=== PATIENT | male | born 1950 | race American Indian/Alaskan Native ===

== ENCOUNTER 2017-09-22 13:55 | Emergency (ER) | payer MEDICARE | END 2017-09-22 14:25 | disposition left against medical advice (07) | LOC: ED 13:55 | DX: R05 Cough (principal); Z53.21 Procedure and treatment not carried out due to patient leaving prior to being seen by health care provider ==

== ENCOUNTER 2017-09-22 19:57 | Emergency (ER) | payer MEDICARE ==
[2017-09-22 21:56] VITALS: BP 147/73
--- NOTE | 2017-09-22 22:48 | XRay Report ---
FINAL REPORT EXAM: XR CHEST ROUTINE 2V HISTORY: productive cough x3 weeks TECHNIQUE: upright single view chest PRIORS: None. FINDINGS: Cardiac and mediastinal contours are unremarkable. No focal pulmonary infiltrate is identified. No pleural fluid collection seen. Pulmonary vasculature is unremarkable. IMPRESSION: Negative single-view chest
[2017-09-22] MEDS ORDERED: GUAIFENESIN DM SYRUP PO ONE (23:15)
[2017-09-22] MEDS ORDERED: ZITHROMAX PO ONE (23:16)
--- NOTE | 2017-09-22 23:19 | Emergency Department Report ---
- General Chief Complaint: Upper Respiratory Infection Stated Complaint: SEVERE COUGH Time Seen by Provider: 09/22/17 23:10 Source: patient Mode of arrival: Ambulatory Limitations: No Limitations - History of Present Illness Initial Comments: 67-year-old male past medical history hypertension presents with complaint of persistent cough. Patient denies fevers chills denies sore throat denies earache. Speaking in full sentences no audible wheezing or stridor. States the cough is slightly worse at night. Denies any orthopnea or paroxysmal nocturnal dyspnea. Denies any chest pain or palpitations or shortness of breath at rest. States he was taking some xyrx-ndq-rsyugez cough medicine with minimal relief of his cough. Patient awake alert and oriented 3. Denies any pleuritic chest pain or LE swelling/pain. MD Complaint: cough Onset/Timin -: week(s) Severity: moderate Consistency: constant Improves With: OTC cold medicine Associated Symptoms: cough Treatments Prior to Arrival: none - Related Data Previous Rx's Medication Instructions Recorded Last Taken Type Azithromycin [Zithromax] 250 mg PO DAILY #6 tablet 11/22/16 Unknown Rx Benzonatate [Tessalon Perles] 100 mg PO Q8HR #21 capsule 11/22/16 Unknown Rx Guaifenesin/Codeine Phosphate 10 ml PO TID #118 liquid 11/22/16 Unknown Rx [Guaifenesin-Codeine Liquid] Labetalol [Normodyne TAB] 100 mg PO DAILY #30 tablet 11/22/16 Unknown Rx ALBUTEROL Inhaler [ProAir HFA 2 puff IH QID PRN #1 inhalation 09/22/17 Unknown Rx Inhaler] Azithromycin [Zithromax Z-KYA] 250 mg PO QDAY #4 tablet 09/22/17 Unknown Rx Phenylephrine/Dm/Acetaminop/GG 10 ml PO Q6H PRN #1 liquid 09/22/17 Unknown Rx [Mucinex Ewgz-Uyj-Dwpuegufnl Lq] predniSONE [Deltasone] 20 mg PO QDAY #4 tablet 09/22/17 Unknown Rx Allergies Allergy/AdvReac Type Severity Reaction Status Date / Time No Known Allergies Allergy Unverified 11/22/16 13:45 ED Review of Systems ROS: Stated complaint: SEVERE COUGH Other details as noted in HPI Constitutional: denies: chills, fever Eyes: denies: eye pain, eye discharge, vision change ENT: denies: ear pain, throat pain Respiratory: cough (3 weeks of persistent cough). denies: shortness of breath, wheezing Cardiovascular: denies: chest pain, palpitations Endocrine: no symptoms reported Gastrointestinal: denies: abdominal pain, nausea, diarrhea Genitourinary: denies: urgency, dysuria Musculoskeletal: denies: back pain, joint swelling, arthralgia Skin: denies: rash, lesions Neurological: denies: headache, weakness, paresthesias Psychiatric: denies: anxiety, depression Hematological/Lymphatic: denies: easy bleeding, easy bruising ED Past Medical Hx - Past Medical History Previous Medical History?: Yes Hx Hypertension: Yes (NO MEDS) - Surgical History Past Surgical History?: No - Social History Smoking Status: Never Smoker - Medications Home Medications: Home Medications Medication Instructions Recorded Confirmed Last Taken Type Azithromycin [Zithromax] 250 mg PO DAILY #6 tablet 11/22/16 Unknown Rx Benzonatate [Tessalon Perles] 100 mg PO Q8HR #21 capsule 11/22/16 Unknown Rx Guaifenesin/Codeine Phosphate 10 ml PO TID #118 liquid 11/22/16 Unknown Rx [Guaifenesin-Codeine Liquid] Labetalol [Normodyne TAB] 100 mg PO DAILY #30 tablet 11/22/16 Unknown Rx ALBUTEROL Inhaler [ProAir HFA 2 puff IH QID PRN #1 inhalation 09/22/17 Unknown Rx Inhaler] Azithromycin [Zithromax Z-KYA] 250 mg PO QDAY #4 tablet 09/22/17 Unknown Rx Phenylephrine/Dm/Acetaminop/GG 10 ml PO Q6H PRN #1 liquid 09/22/17 Unknown Rx [Mucinex Emgx-Xzl-Vnflnksotz Lq] predniSONE [Deltasone] 20 mg PO QDAY #4 tablet 09/22/17 Unknown Rx ED Physical Exam - General Limitations: No Limitations General appearance: alert, in no apparent distress - Head Head exam: Present: atraumatic, normocephalic - Eye Eye exam: Present: normal appearance, PERRL, EOMI Pupils: Present: normal accommodation - ENT ENT exam: Present: normal exam, mucous membranes moist - Neck Neck exam: Present: normal inspection - Respiratory Respiratory exam: Present: normal lung sounds bilaterally. Absent: respiratory distress - Cardiovascular Cardiovascular Exam: Present: regular rate, normal rhythm. Absent: systolic murmur, diastolic murmur, rubs, gallop - GI/Abdominal GI/Abdominal exam: Present: soft, normal bowel sounds - Rectal Rectal exam: Present: deferred - Extremities Exam Extremities exam: Present: normal inspection - Back Exam Back exam: Present: normal inspection - Neurological Exam Neurological exam: Present: alert, oriented X3 - Psychiatric Psychiatric exam: Present: normal affect, normal mood - Skin Skin exam: Present: warm, dry, intact, normal color. Absent: rash ED Course Vital Signs 09/22/17 21:54 Temperature 98.5 F Pulse Rate 81 Respiratory 18 Rate Blood Pressure 147/73 O2 Sat by Pulse 100 Oximetry ED Medical Decision Making - Medical Decision Making A/P: Acute bronchitis, cough 1-xray unremarkable. as patient states he has had cough for approximately 3 weeks will cover empirically with azithromycin 2-Mucinex when necessary, short course prednisone, Tylenol when necessary 3-albuterol inhaler when necessary 4- follow up with primary care doctor Critical care attestation.: If time is entered above; I have spent that time in minutes in the direct care of this critically ill patient, excluding procedure time. ED Disposition Clinical Impression: Bronchitis Disposition: DC-01 TO HOME OR SELFCARE Is pt being admited?: No Does the pt Need Aspirin: No Condition: Stable Instructions: Acute Bronchitis (ED) Prescriptions: ALBUTEROL Inhaler [ProAir HFA Inhaler] 2 puff IH QID PRN #1 inhalation PRN Reason: Cough Azithromycin [Zithromax Z-KYA] 250 mg PO QDAY #4 tablet Phenylephrine/Dm/Acetaminop/GG [Mucinex Zdht-Wyh-Suegbtgppq Lq] 10 ml PO Q6H PRN #1 liquid PRN Reason: Cough predniSONE [Deltasone] 20 mg PO QDAY #4 tablet Referrals: LEEROY GREER MD [Staff Physician] - 3-5 Days OBI MONTENEGRO MD [Staff Physician] - 3-5 Days Time of Disposition: 23:17
[2017-09-22] MEDS ORDERED: DUONEB *Not for PRN Use IH ONE (23:22)
== END 2017-09-23 00:08 | disposition home or self-care (01) ==
LOC: ED 19:57
DX: J40 Bronchitis, not specified as acute or chronic (principal); I10 Essential (primary) hypertension
CPT/HCPCS: 71020; 94640

== ENCOUNTER 2017-10-04 17:46 | Emergency (ER) | payer MEDICARE ==
--- NOTE | 2017-10-04 22:03 | Emergency Department Report ---
Minor Respiratory - HPI Chief Complaint: Upper Respiratory Infection Stated Complaint: COUGH Time Seen by Provider: 10/04/17 21:43 Duration: 5 Days Minor Respiratory: Yes Able to Tolerate Fluids, Yes Cough (x 1 week, post antibiotic use), No Rhinorrhea, No Sore Throat, No Ear Pain, No Sick Contacts, No Hemoptysis, No Chest Pain, No Shortness of Breath, No Fever Other History: This is a 67 y.o. male presenting with cough post bronchitis treatment. Patient states he is tired of coughing from bronchitis. He feel better but not sure if the antibiotic took care of infection. Denies chest pain , congestion, headache, SOB, and orthopena. ED Review of Systems ROS: Stated complaint: COUGH Other details as noted in HPI Constitutional: no symptoms reported, see HPI. denies: chills, diaphoresis, fever, malaise, weakness ENT: as per HPI. denies: ear pain, throat pain, dental pain, hearing loss, epistaxis, congestion Respiratory: see HPI, cough. denies: orthopnea, shortness of breath, SOB with exertion, SOB at rest, stridor, wheezing Cardiovascular: as per HPI. denies: chest pain, palpitations, dyspnea on exertion, orthopnea, edema, syncope, paroxysmal nocturnal dyspnea Gastrointestinal: as per HPI. denies: abdominal pain, nausea, vomiting, diarrhea, constipation, hematemesis, melena, hematochezia Psychiatric: as per HPI. denies: anxiety, depression, auditory hallucinations, visual hallucinations, homicidal thoughts, suicidal thoughts ED Past Medical Hx - Past Medical History Previous Medical History?: Yes Hx Hypertension: Yes (NO MEDS) - Social History Smoking Status: Former Smoker - Medications Home Medications: Home Medications Medication Instructions Recorded Confirmed Last Taken Type Azithromycin [Zithromax] 250 mg PO DAILY #6 tablet 11/22/16 Unknown Rx Benzonatate [Tessalon Perles] 100 mg PO Q8HR #21 capsule 11/22/16 Unknown Rx Guaifenesin/Codeine Phosphate 10 ml PO TID #118 liquid 11/22/16 Unknown Rx [Guaifenesin-Codeine Liquid] Labetalol [Normodyne TAB] 100 mg PO DAILY #30 tablet 11/22/16 Unknown Rx ALBUTEROL Inhaler [ProAir HFA 2 puff IH QID PRN #1 inhalation 09/22/17 Unknown Rx Inhaler] Azithromycin [Zithromax Z-KYA] 250 mg PO QDAY #4 tablet 09/22/17 Unknown Rx Phenylephrine/Dm/Acetaminop/GG 10 ml PO Q6H PRN #1 liquid 09/22/17 Unknown Rx [Mucinex Txcz-Nng-Ovjbpfjxjl Lq] predniSONE [Deltasone] 20 mg PO QDAY #4 tablet 09/22/17 Unknown Rx Benzonatate 200 mg PO TID 10 Days #30 capsule 10/04/17 Unknown Rx Cetirizine HCl [Allergy] 10 mg PO DAILY 30 Days #30 tablet 10/04/17 Unknown Rx Minor Respiratory Exam - Exam General: Vital signs noted. No distress. Alert and acting appropriately. HEENT: Yes Moist Mucous Membranes, No Pharyngeal Erythema, No Pharyngeal Exudates, No Rhinorrhea, No Conjuctival Injection, No Frontal Tenderness, No Maxillary Tenderness Ear: Neither TM Bulge, Neither TM Erythema, Neither EAC Pain, Neither EAC Discharge Neck: Yes Supple, No Adenopathy Lungs: Yes Good Air Exchange, Yes Cough, No Wheezes, No Ronchi, No Stridor, No Labored Respirations, No Retractions, No Use of Accessory Muscles, No Other Abnormal Lung Sounds Heart: Yes Regular, No Murmur Abdomen: Yes Normal Bowel Sounds, No Tenderness, No Peritoneal Signs Skin: No Rash, No Edema Neurologic: Alert and oriented, no deficits. Musculoskeletal: Unremarkable. ED Course Vital Signs 10/04/17 20:15 Temperature 98.1 F Pulse Rate 74 Respiratory 20 Rate Blood Pressure 147/74 O2 Sat by Pulse 96 Oximetry Critical care attestation.: If time is entered above; I have spent that time in minutes in the direct care of this critically ill patient, excluding procedure time. ED Disposition Clinical Impression: Viral upper respiratory tract infection with cough Disposition: DC-01 TO HOME OR SELFCARE Is pt being admited?: No Does the pt Need Aspirin: No Condition: Stable Instructions: Acute Cough (ED) Additional Instructions: Follow-up with Primary Care Provider. Prescriptions: Benzonatate 200 mg PO TID 10 Days #30 capsule Cetirizine HCl [Allergy] 10 mg PO DAILY 30 Days #30 tablet Time of Disposition: 22:08 Print Language: TRINIDADIAN
[2017-10-04 22:05] VITALS: BP 140/77
== END 2017-10-04 22:30 | disposition home or self-care (01) ==
LOC: ED 17:46
DX: J06.9 Acute upper respiratory infection, unspecified (principal); I10 Essential (primary) hypertension
CPT/HCPCS: 99282